=== PATIENT | female | born 1935 | race Caucasian/White ===

== ENCOUNTER 2017-02-22 22:26 | Emergency (ER) | payer MEDICARE, OTHER ==
[~2017-02-22] VITALS: Ht 160 cm; Wt 60.7 kg
[2017-02-22 22:27] VITALS: BP 131/76
== END 2017-02-23 00:08 | disposition home or self-care (01) ==
LOC: ED 02-23 00:02
DX: N30.01 Acute cystitis with hematuria (principal); I10 Essential (primary) hypertension
CPT/HCPCS: 81001; 87077; 87086; 87186; 99284

== ENCOUNTER → 2017-04-24 | Outpatient (CLI) | payer MEDICARE | END | disposition home or self-care (01) | LOC: CFH 07:23 | PROVIDERS: ATTEND Family Medicine | DX: G31.9 Degenerative disease of nervous system, unspecified (principal); R90.82 White matter disease, unspecified | CPT/HCPCS: 70551 ==

== ENCOUNTER 2017-05-19 08:33 | Emergency (ER) | payer MEDICARE ==
[~2017-05-19] VITALS: Ht 162.6 cm; Wt 60.7 kg
[2017-05-19 08:34] VITALS: BP 165/77
[2017-05-19 09:10] LABS: PATH.CAST-FLAG NOT PRESENT; SPERM-FLAG NOT PRESENT; SRC-FLAG NOT PRESENT; XTAL-FLAG NOT PRESENT; YLC-FLAG NOT PRESENT
[2017-05-19] MEDS ORDERED: CEFTRIAXONE 1,000 MG IM ONE (10:00)
[2017-05-19] MEDS ORDERED: LIDOCAINE 1%, 20ML ONE (10:01)
[2017-05-19] MEDS ORDERED: CEFTRIAXONE 1,000 MG ONE (10:01)
== END 2017-05-19 10:37 | disposition home or self-care (01) ==
LOC: ED 09:36
DX: R30.0 Dysuria (principal); R35.0 Frequency of micturition; R53.1 Weakness
CPT/HCPCS: 81001; 87086; 96372; 99284; J0696

== ENCOUNTER → 2017-05-19 | Outpatient (CLI) | payer MEDICARE | LOC: LAB 07:49 | PROVIDERS: ATTEND Family Medicine | DX: Z02.9 Encounter for administrative examinations, unspecified (principal) ==

== ENCOUNTER 2018-03-14 11:35 | Inpatient (IN) | payer MEDICARE ==
[~2018-03-14] VITALS: Ht 160 cm; Wt 61.0 kg
[2018-03-14] MEDS ORDERED: SODIUM CHLORIDE FLUSH 10ML SYR IVF ONE ×2 (12:30→13:30)
[2018-03-14] MEDS ORDERED: SODIUM CHLORIDE 0.9% 1,000ML IVBOLUS ONE (12:30)
[2018-03-14] MEDS ORDERED: ASPIRIN 81 MG TABLET CHEW PO ONE (12:30)
[2018-03-14 12:39] LABS: BASOPHILS # (AUTO) 0.08 x10^3/uL (0-0.1); BASOPHILS % (AUTO) 1 % (0-1); EOSINOPHILS # (AUTO) 0.12 x10^3/uL (0-0.4); EOSINOPHILS % (AUTO) 1 % (1-7); LYMPHOCYTES % (AUTO) 16 % (22-44); MD NO; MEAN CORPUSCULAR HEMOGLOBIN 29.1 pg (27.0-34.8); MEAN CORPUSCULAR HGB CONC 32.8 g/dL (32.4-35.8); MEAN PLATELET VOLUME 6.9 fL (7.4-10.4); MONOCYTES # (AUTO) 0.68 x10^3/uL (0.2-0.8); MONOCYTES % (AUTO) 6 % (2-9); NEUTROPHILS # (AUTO) 8.98 x10^3/uL (1.8-6.8); NEUTROPHILS % (AUTO) 76 % (42-75); PLATELET COUNT 464 x10^3/uL (130-400); RED BLOOD COUNT 4.27 x10^6/uL (3.82-5.3); RED CELL DISTRIBUTION WIDTH 14.5 % (9.6-15.2)
[2018-03-14 12:52] LABS: ALANINE AMINOTRANSFERASE 44 U/L (12-78); ALBUMIN 3.5 g/dL (3.4-5.0); ANION GAP 11 mmol/L (5-15); CALCIUM 9.5 mg/dL (8.5-10.1); CHLORIDE 91 mmol/L (98-107); CREATININE 0.72 mg/dL (0.55-1.02)
[2018-03-14 12:56] LABS: ALKALINE PHOSPHATASE 114 U/L (45-117); BILIRUBIN,TOTAL 0.4 mg/dL (0.2-1.0); TOTAL PROTEIN 7.8 g/dL (6.4-8.2); TROPONIN I < 0.015 ng/mL (0.000-0.045)
[2018-03-14] MEDS ORDERED: DIPHENHYDRAMINE 50 MG/ML, 1ML ONE (13:28)
[2018-03-14] MEDS ORDERED: ASPIRIN 81 MG TABLET CHEW ONE (13:28)
[2018-03-14] MEDS ORDERED: KETOROLAC 30 MG/1 ML ONE (13:28)
[2018-03-14] MEDS ORDERED: METOCLOPRAMIDE 5 MG/ML, 2ML ONE (13:28)
[2018-03-14] MEDS ORDERED: KETOROLAC 30 MG/1 ML IVPush ONE (13:30)
[2018-03-14] MEDS ORDERED: DIPHENHYDRAMINE 50 MG/ML, 1ML IVPush ONE (13:30)
[2018-03-14] MEDS ORDERED: METOCLOPRAMIDE 5 MG/ML, 2ML IVPush ONE (13:30)
[2018-03-14] MEDS ORDERED: ENALAPRILAT 1.25 MG/ML, 2ML IV ONE (14:30)
[2018-03-14] MEDS ORDERED: ENALAPRILAT 1.25 MG/ML, 2ML ONE (14:44)
[2018-03-14 14:45] LABS: MICROSCOPIC AUTO
[2018-03-14 14:46] LABS: CULTURE INDICATED? YES
[2018-03-14] MEDS ORDERED: CEFTRIAXONE PMX 1GM/50ML 50 ML ONE (14:54)
[2018-03-14] MEDS ORDERED: CEFTRIAXONE PMX 1GM/50ML 50 ML IV ONE (15:00)
[2018-03-14] MEDS ORDERED: LOSA100T6 PO (15:53)
[2018-03-14] MEDS ORDERED: POTA10TA6 PO (15:53)
[2018-03-14] MEDS ORDERED: ATOR20TA PO (15:53)
[2018-03-14] MEDS ORDERED: FURO-93 PO (15:53)
[2018-03-14 16:01] VITALS: BP 177/90
[2018-03-14] MEDS ORDERED: POLYETHYLENE GLYCOL 17 GM PACKET PO PRN (16:30)
[2018-03-14] MEDS ORDERED: morphine SULFATE 10 MG/ML, 1ML IVPush PRN (16:30)
[2018-03-14] MEDS ORDERED: ACETAMINOPHEN 325 MG TABLET PO PRN (16:30)
[2018-03-14] MEDS ORDERED: ONDANSETRON 2MG/ML, 2ML IVPush PRN (16:30)
[2018-03-14] MEDS ORDERED: ENALAPRILAT 1.25 MG/ML, 2ML IV PRN (16:30)
[2018-03-14] MEDS ORDERED: DOCUSATE 100 MG CAPSULE PO PRN (16:30)
[2018-03-14] MEDS ORDERED: LABETALOL 5MG/ML, 20ML IVPush PRN (16:30)
[2018-03-14] MEDS: hydrALAzine 20 MG/ML, 1ML IV PRN (16:55)
[2018-03-14] MEDS: KETOROLAC 30 MG/1 ML IVPush PRN (16:55)
[2018-03-14] MEDS: ENOXAPARIN 40 MG/0.4 ML SQ SCH (16:56)
[2018-03-14] MEDS ORDERED: FUROSEMIDE 20 MG TABLET PO SCH (17:00)
[2018-03-14] MEDS: CEFTRIAXONE PMX 1GM/50ML 50 ML IV SCH (17:54)
[2018-03-14] MEDS: NS + 20MEQ KCL 1,000 ML IV SCH (17:55)
[2018-03-14] MEDS: HYDROcodone/APAP 5/325 TABLET PO PRN (17:58)
[2018-03-14 18:22] VITALS: BP 145/95
[2018-03-14 19:13] VITALS: BP 145/72
[2018-03-14] MEDS: ATORVASTATIN 20 MG TABLET PO SCH (20:54)
[2018-03-15] MEDS: HYDROcodone/APAP 5/325 TABLET PO PRN ×2 (02:44→19:25)
[2018-03-15 02:46] VITALS: BP 161/76
[2018-03-15] MEDS: NS + 20MEQ KCL 1,000 ML IV SCH (03:11)
[2018-03-15 05:29] LABS: ANION GAP 8 mmol/L (5-15); CALCIUM 7.8 mg/dL (8.5-10.1); CHLORIDE 102 mmol/L (98-107); CREATININE 0.62 mg/dL (0.55-1.02)
[2018-03-15 06:33] VITALS: BP 181/84
[2018-03-15] MEDS: KETOROLAC 30 MG/1 ML IVPush PRN ×2 (06:40→20:59)
[2018-03-15] MEDS: hydrALAzine 20 MG/ML, 1ML IV PRN (06:40)
[2018-03-15] MEDS ORDERED: DIPHENHYDRAMINE 50 MG/ML, 1ML IVPush ONE (08:00)
[2018-03-15] MEDS ORDERED: METOCLOPRAMIDE 5 MG/ML, 2ML IVPush ONE (08:00)
[2018-03-15] MEDS ORDERED: KETOROLAC 30 MG/1 ML IVPush SCH (08:00)
[2018-03-15] MEDS ORDERED: METOCLOPRAMIDE 5 MG/ML, 2ML ONE (08:04)
[2018-03-15] MEDS ORDERED: DIPHENHYDRAMINE 50 MG/ML, 1ML ONE (08:04)
[2018-03-15] MEDS ORDERED: FUROSEMIDE 40 MG TABLET ONE (08:05)
[2018-03-15] MEDS: LOSARTAN 50MG TABLET PO SCH (08:08)
[2018-03-15] MEDS: POTASSIUM CHLORIDE 10 MEQ TABLET.ER PO SCH (08:08)
[2018-03-15] MEDS: SENNA/DOCUSATE TABLET PO SCH (08:15)
[2018-03-15] MEDS ORDERED: FUROSEMIDE 20 MG TABLET PO SCH (09:00)
[2018-03-15 09:30] VITALS: BP 133/67
[2018-03-15] MEDS: SODIUM CHLORIDE 0.45% 1,000 ML IV SCH ×2 (09:30→19:26)
[2018-03-15] MEDS ORDERED: ENALAPRILAT 1.25 MG/ML, 2ML IV PRN (10:30)
[2018-03-15] MEDS: FLUTICASONE NASAL SPRAY 16GM NAS SCH ×2 (11:54→19:25)
[2018-03-15 14:00] VITALS: BP 155/77
[2018-03-15] MEDS: CETIRIZINE 10 MG TABLET PO PRN (15:44)
[2018-03-15] MEDS: CEFTRIAXONE PMX 1GM/50ML 50 ML IV SCH (17:04)
[2018-03-15] MEDS: ENOXAPARIN 40 MG/0.4 ML SQ SCH (17:04)
[2018-03-15] MEDS: ATORVASTATIN 20 MG TABLET PO SCH (19:25)
[2018-03-15 20:00] VITALS: BP 162/71
[2018-03-16] VITALS (8 sets, daily range): BP systolic 144–186; BP diastolic 72–85
[2018-03-16 05:29] LABS: ALBUMIN 2.5 g/dL (3.4-5.0); ANION GAP 8 mmol/L (5-15); CALCIUM 7.8 mg/dL (8.5-10.1); CHLORIDE 105 mmol/L (98-107)
[2018-03-16 05:34] LABS: ALANINE AMINOTRANSFERASE 33 U/L (12-78); ALKALINE PHOSPHATASE 74 U/L (45-117); BILIRUBIN,TOTAL 0.5 mg/dL (0.2-1.0); CREATININE 0.69 mg/dL (0.55-1.02); TOTAL PROTEIN 5.5 g/dL (6.4-8.2)
[2018-03-16] MEDS: SODIUM CHLORIDE 0.45% 1,000 ML IV SCH (05:35)
[2018-03-16] MEDS: KETOROLAC 30 MG/1 ML IVPush PRN ×2 (05:35→21:23)
[2018-03-16 05:36] LABS: BASOPHILS # (AUTO) 0.06 x10^3/uL (0-0.1); BASOPHILS % (AUTO) 1 % (0-1); EOSINOPHILS # (AUTO) 0.41 x10^3/uL (0-0.4); EOSINOPHILS % (AUTO) 5 % (1-7); LYMPHOCYTES # (AUTO) 2.23 x10^3/uL (1-3.4); LYMPHOCYTES % (AUTO) 29 % (22-44); MD NO; MEAN CORPUSCULAR HEMOGLOBIN 29.5 pg (27.0-34.8); MEAN CORPUSCULAR HGB CONC 33.2 g/dL (32.4-35.8); MEAN CORPUSCULAR VOLUME 88.8 fL (80-100); MEAN PLATELET VOLUME 6.7 fL (7.4-10.4); MONOCYTES # (AUTO) 0.72 x10^3/uL (0.2-0.8); MONOCYTES % (AUTO) 9 % (2-9); NEUTROPHILS # (AUTO) 4.23 x10^3/uL (1.8-6.8); NEUTROPHILS % (AUTO) 55 % (42-75); PLATELET COUNT 440 x10^3/uL (130-400); RED BLOOD COUNT 3.41 x10^6/uL (3.82-5.3); RED CELL DISTRIBUTION WIDTH 14.3 % (9.6-15.2)
[2018-03-16] MEDS: SENNA/DOCUSATE TABLET PO SCH (07:22)
[2018-03-16] MEDS: LOSARTAN 50MG TABLET PO SCH (07:22)
[2018-03-16] MEDS: FLUTICASONE NASAL SPRAY 16GM NAS SCH ×2 (07:22→21:23)
[2018-03-16] MEDS: POTASSIUM CHLORIDE 10 MEQ TABLET.ER PO SCH (07:22)
[2018-03-16] MEDS: CEFTRIAXONE PMX 1GM/50ML 50 ML IV SCH (09:14)
[2018-03-16] MEDS: AMLODIPINE 5 MG TABLET PO SCH (09:22)
[2018-03-16] MEDS: FUROSEMIDE 40 MG TABLET PO SCH (09:22)
[2018-03-16] MEDS: hydrALAzine 20 MG/ML, 1ML IV PRN (10:28)
[2018-03-16] MEDS: HYDROcodone/APAP 5/325 TABLET PO PRN ×2 (14:13→19:36)
[2018-03-16] MEDS: ENOXAPARIN 40 MG/0.4 ML SQ SCH (16:56)
[2018-03-16] MEDS: CETIRIZINE 10 MG TABLET PO PRN (19:36)
[2018-03-16] MEDS: ATORVASTATIN 20 MG TABLET PO SCH (21:23)
[2018-03-17 02:59] VITALS: BP 120/60
[2018-03-17] MEDS: KETOROLAC 30 MG/1 ML IVPush PRN (04:30)
[2018-03-17 05:01] LABS: ALBUMIN 2.9 g/dL (3.4-5.0); ANION GAP 9 mmol/L (5-15); CALCIUM 8.3 mg/dL (8.5-10.1); CHLORIDE 100 mmol/L (98-107)
[2018-03-17 05:02] LABS: CREATININE 0.71 mg/dL (0.55-1.02)
[2018-03-17 05:18] LABS: BASOPHILS # (AUTO) 0.09 x10^3/uL (0-0.1); BASOPHILS % (AUTO) 1 % (0-1); EOSINOPHILS # (AUTO) 0.59 x10^3/uL (0-0.4); EOSINOPHILS % (AUTO) 8 % (1-7); LYMPHOCYTES # (AUTO) 2.29 x10^3/uL (1-3.4); LYMPHOCYTES % (AUTO) 31 % (22-44); MD NO; MEAN CORPUSCULAR HEMOGLOBIN 29.4 pg (27.0-34.8); MEAN CORPUSCULAR HGB CONC 33.4 g/dL (32.4-35.8); MEAN CORPUSCULAR VOLUME 88.2 fL (80-100); MEAN PLATELET VOLUME 6.5 fL (7.4-10.4); MONOCYTES # (AUTO) 0.63 x10^3/uL (0.2-0.8); MONOCYTES % (AUTO) 8 % (2-9); NEUTROPHILS % (AUTO) 52 % (42-75); PLATELET COUNT 528 x10^3/uL (130-400); RED BLOOD COUNT 3.86 x10^6/uL (3.82-5.3); RED CELL DISTRIBUTION WIDTH 14.3 % (9.6-15.2)
[2018-03-17 07:24] VITALS: BP 143/73
[2018-03-17] MEDS: FLUTICASONE NASAL SPRAY 16GM NAS SCH (08:27)
[2018-03-17] MEDS: POTASSIUM CHLORIDE 10 MEQ TABLET.ER PO SCH (08:29)
[2018-03-17] MEDS: SENNA/DOCUSATE TABLET PO SCH (08:29)
[2018-03-17] MEDS: LOSARTAN 50MG TABLET PO SCH (08:30)
[2018-03-17] MEDS: FUROSEMIDE 40 MG TABLET PO SCH (08:31)
[2018-03-17] MEDS: AMLODIPINE 5 MG TABLET PO SCH (08:31)
[2018-03-17] MEDS: CEFTRIAXONE PMX 1GM/50ML 50 ML IV SCH (08:32)
[2018-03-17 09:55] VITALS: BP 173/76
[2018-03-17] MEDS ORDERED: AMLO5TAB2 PO (10:24)
[2018-03-17] MEDS ORDERED: CEFD300C37 PO (10:25)
[2018-03-17 10:42] LABS: MICROSCOPIC NOT IND
[2018-03-17 11:42] VITALS: BP 151/78
[2018-03-17 12:25] VITALS: BP 132/79
[2018-03-17 13:04] VITALS: BP 118/67
== END 2018-03-17 16:00 | disposition home or self-care (01) | DRG 640 ==
LOC: ED 14:14 → EDIP 14:27 → 4WST 15:32 → DCLOUNGE 03-17 15:39
PROVIDERS: ADMIT Internal Medicine Pulmonary Disease; ATTEND Family Medicine
DX: E87.1 Hypo-osmolality and hyponatremia (principal); E43 Unspecified severe protein-calorie malnutrition; N39.0 Urinary tract infection, site not specified; D64.9 Anemia, unspecified; B96.20 Unspecified Escherichia coli [E. coli] as the cause of diseases classified elsewhere; E78.00 Pure hypercholesterolemia, unspecified; E78.5 Hyperlipidemia, unspecified; F41.9 Anxiety disorder, unspecified; R51 Headache; R79.89 Other specified abnormal findings of blood chemistry; I10 Essential (primary) hypertension; Z79.899 Other long term (current) drug therapy; Z80.3 Family history of malignant neoplasm of breast; Z88.8 Allergy status to other drugs, medicaments and biological substances; Z68.23 Body mass index [BMI] 23.0-23.9, adult
CPT/HCPCS: 36415; 70450; 71046; 80048; 80053; 81001; 81003; 82040; 83735; 84100; 84484; 85025; 87040; 87077; 87086; 87186; 93005; 96361; 96374; 96375; J0696; J1650; J1885; J3480; J0360; J1200; J2765; J7030

== ENCOUNTER 2018-05-21 00:19 | Emergency (ER) | payer MEDICARE ==
[~2018-05-21] VITALS: Ht 160 cm; Wt 61.5 kg
[~2018-05-21 00:19] MED LIST: AMLO5TAB2 PO; ATOR20TA PO; CEFD300C37 PO; FURO-93 PO; LOSA100T6 PO; POTA10TA6 PO
[2018-05-21 01:37] LABS: MICROSCOPIC AUTO
[2018-05-21 01:38] LABS: CULTURE INDICATED? YES
[2018-05-21 01:47] VITALS: BP 152/73
[2018-05-21] MEDS ORDERED: CEFDINIR 300 MG CAPSULE ONE (01:59)
[2018-05-21] MEDS ORDERED: CEFDINIR 300 MG CAPSULE PO ONE (02:00)
[2018-05-21] MEDS ORDERED: DIPHENHYDRAMINE 50 MG CAPSULE PO PRN (02:00)
[2018-05-21] MEDS ORDERED: DIPHENHYDRAMINE 50 MG CAPSULE ONE (02:04)
== END 2018-05-21 02:14 | disposition home or self-care (01) ==
LOC: ED 02:01
DX: N30.00 Acute cystitis without hematuria (principal); E78.00 Pure hypercholesterolemia, unspecified; I10 Essential (primary) hypertension
CPT/HCPCS: 81001; 87077; 87086; 87186; 99284

== ENCOUNTER 2018-12-29 10:51 | Inpatient (IN) | payer MEDICARE ==
[~2018-12-29] VITALS: Ht 160 cm; Wt 60.0 kg
[~2018-12-29 10:51] MED LIST changes: +AMLO-150 PO; -AMLO5TAB2 PO; +LOSA100T14 PO; -LOSA100T6 PO
--- NOTE | 2018-12-29 11:15 | NUR ---
PT BIB [facility] AFTER [facility] SLIPPING ON ICE AND INJURING LEFT HIP. NOTED LEG IS VERY PAINFUL AND EXTERNALLY ROTATED. IV IN PLACE ON ARRIVAL, 75 FENT AND 1 VERSED GIVEN IN ROUTE. AT BEDSIDE. MD TO BEDSIDE FOR ASSESSMENT. CONNECTED TO MONITORING, VSS. CALL LIGHT WITHIN REACH. AWAITING TESTING AND RESULTS AT [facility] TIME
[2018-12-29] MEDS ORDERED: ONDANSETRON 2MG/ML, 2ML ONE ×2 (11:19→18:34)
[2018-12-29] MEDS ORDERED: HYDROmorphone 1 MG/ML, 1ML ONE (11:19)
[2018-12-29] MEDS ORDERED: ONDANSETRON 2MG/ML, 2ML IVPush ONE (11:30)
[2018-12-29] MEDS ORDERED: HYDROmorphone 1 MG/ML, 1ML IVPush PRN (11:30)
--- NOTE | 2018-12-29 11:43 | NUR ---
PT ATTMEPTED TO USE BEDPAN BUT WAS UNABLE. PT STRAIGHTCATHED WITH MD PERMISSION TO EMPTY BLADDER.
[2018-12-29 11:45] LABS: BASOPHILS # (AUTO) 0.03 x10^3/uL (0-0.1); BASOPHILS % (AUTO) 0 % (0-1); EOSINOPHILS # (AUTO) 0.34 x10^3/uL (0-0.4); EOSINOPHILS % (AUTO) 5 % (1-7); LYMPHOCYTES # (AUTO) 1.99 x10^3/uL (1-3.4); LYMPHOCYTES % (AUTO) 29 % (22-44); MD NO; MEAN CORPUSCULAR HEMOGLOBIN 29.5 pg (27.0-34.8); MEAN CORPUSCULAR HGB CONC 33.5 g/dL (32.4-35.8); MEAN PLATELET VOLUME 7.8 fL (7.4-10.4); MONOCYTES % (AUTO) 7 % (2-9); NEUTROPHILS # (AUTO) 3.98 x10^3/uL (1.8-6.8); NEUTROPHILS % (AUTO) 58 % (42-75); PLATELET COUNT 331 x10^3/uL (130-400); RED BLOOD COUNT 4.48 x10^6/uL (3.82-5.3); RED CELL DISTRIBUTION WIDTH 14.9 % (9.6-15.2)
[2018-12-29 11:51] LABS: INTERNATIONAL NORMALIZED RATIO 0.98 (0.93-1.1); PROTHROMBIN TIME 10.4 Seconds (9.6-11.5)
[2018-12-29 11:52] LABS: ALBUMIN 3.7 g/dL (3.4-5.0); ANION GAP 8 mmol/L (5-15); CALCIUM 9.1 mg/dL (8.5-10.1); CHLORIDE 103 mmol/L (98-107); CREATININE 0.85 mg/dL (0.55-1.02)
--- NOTE | 2018-12-29 11:58 | NUR ---
[facility] CONTACTED TO F/U ON IMAGING
--- NOTE | 2018-12-29 12:06 | NUR ---
PT TAKEN FOR IMAGING
--- NOTE | 2018-12-29 12:20 | NUR ---
PT BACK FROM IMAGING
--- NOTE | 2018-12-29 12:33 | NUR ---
ALL RESULTS BACK AT THIS TIME
--- NOTE | 2018-12-29 12:53 | NUR ---
MD TO BEDSIDE FOR ADMIT
--- NOTE | 2018-12-29 13:10 | NUR ---
REPORT GIVEN TO YSABEL RN, PT READY FOR TRANSPORT
[2018-12-29] MEDS: SODIUM CHLORIDE 0.9% 1,000 ML IV SCH (13:48)
[2018-12-29] MEDS ORDERED: ENALAPRILAT 1.25 MG/ML, 2ML IVPush PRN (14:00)
[2018-12-29] MEDS ORDERED: DOCUSATE 100 MG CAPSULE PO PRN (14:00)
[2018-12-29] MEDS ORDERED: POLYETHYLENE GLYCOL 17 GM PACKET PO PRN (14:00)
[2018-12-29] MEDS ORDERED: hydrALAzine 20 MG/ML, 1ML IVPush PRN (14:00)
[2018-12-29] MEDS ORDERED: BISACODYL 10 MG SUPP PR PRN (14:00)
[2018-12-29] MEDS ORDERED: POTASSIUM CHLORIDE 40 MEQ in SODIUM CHLORIDE 0.9% 500 ML IV ONE (14:00)
[2018-12-29] MEDS ORDERED: BACLOFEN 10 MG TABLET PO PRN (14:00)
[2018-12-29] MEDS ORDERED: OXYcodone IR 5MG TABLET PO PRN ×2 (14:00→22:00)
[2018-12-29 14:59] VITALS: BP 119/73
[2018-12-29] MEDS: morphine SULFATE 10 MG/ML, 1ML IVPush PRN ×2 (16:52→17:08)
[2018-12-29] MEDS ORDERED: FENTANYL PF 100 MCG/2ML ONE ×2 (17:45→19:36)
[2018-12-29] MEDS ORDERED: MIDAZOLAM 1 MG/ML, 2ML ONE (17:46)
[2018-12-29] MEDS ORDERED: DEXAMETHASONE 4 MG/ML, 1ML ONE (18:34)
[2018-12-29] MEDS ORDERED: CEFAZOLIN 1,000 MG ONE (18:34)
[2018-12-29] MEDS ORDERED: SUCCINYLCHOLINE 20 MG/ML, 10ML ONE (18:34)
[2018-12-29] MEDS ORDERED: PHENYLEPHRINE 10 MG/ML ONE (18:34)
[2018-12-29] MEDS ORDERED: PROPOFOL 10 MG/ML, 20ML ONE (18:34)
[2018-12-29] MEDS ORDERED: OXYcodone 5 MG/5 ML ORAL.SOL UDC PO PRN (19:30)
[2018-12-29] MEDS ORDERED: MIDAZOLAM 1 MG/ML, 2ML IV PRN (19:30)
[2018-12-29] MEDS ORDERED: hydrALAzine 20 MG/ML, 1ML IV PRN (19:30)
[2018-12-29] MEDS ORDERED: ALBUTEROL/IPRATROPIUM 2.5MG/0.5MG, 3 ML NPPB PRN (19:30)
[2018-12-29] MEDS ORDERED: PROMETHAZINE 25 MG/ML, 1ML IV PRN (19:30)
[2018-12-29] MEDS ORDERED: ACETAMINOPHEN 325 MG TABLET PO PRN (19:30)
[2018-12-29] MEDS ORDERED: KETOROLAC 30 MG/1 ML IV PRN (19:30)
[2018-12-29] MEDS ORDERED: ONDANSETRON 2MG/ML, 2ML IV PRN (19:30)
[2018-12-29] MEDS ORDERED: OXYcodone 5 MG/5 ML ORAL.SOL UDC ONE (19:36)
[2018-12-29] MEDS ORDERED: ACETAMINOPHEN 650 MG/20.3 ML UDC ONE (19:36)
[2018-12-29] MEDS: FENTANYL PF 100 MCG/2ML IV PRN ×2 (19:38→20:02)
[2018-12-29] MEDS ORDERED: HYDROmorphone 2 MG/ML, 1ML ONE (20:16)
[2018-12-29] MEDS: HYDROmorphone 2 MG/ML, 1ML IVPush PRN ×2 (20:19→20:32)
[2018-12-29 21:02] VITALS: BP 113/56
[2018-12-29] MEDS ORDERED: MORPHINE SULFATE 4 MG/ML, 1ML IVPush PRN (22:00)
[2018-12-29] MEDS: ATORVASTATIN 20 MG TABLET PO SCH (22:20)
[2018-12-29] MEDS: KETOROLAC 30 MG/1 ML IVPush SCH (22:20)
[2018-12-30 00:07] VITALS: BP 96/48
[2018-12-30] MEDS: CEFAZOLIN PMX 1GM/50ML 50 ML IV SCH ×3 (02:24→18:35)
[2018-12-30 04:00] VITALS: BP 97/54
[2018-12-30] MEDS: ENOXAPARIN 40 MG/0.4 ML SQ SCH (05:10)
[2018-12-30] MEDS: KETOROLAC 30 MG/1 ML IVPush SCH ×2 (05:10→14:14)
[2018-12-30 05:34] LABS: BASOPHILS # (AUTO) 0.03 x10^3/uL (0-0.1); BASOPHILS % (AUTO) 0 % (0-1); EOSINOPHILS % (AUTO) 0 % (1-7); LYMPHOCYTES # (AUTO) 0.53 x10^3/uL (1-3.4); LYMPHOCYTES % (AUTO) 5 % (22-44); MD NO; MEAN CORPUSCULAR HEMOGLOBIN 29.8 pg (27.0-34.8); MEAN CORPUSCULAR HGB CONC 33.7 g/dL (32.4-35.8); MEAN CORPUSCULAR VOLUME 88.6 fL (80-100); MONOCYTES % (AUTO) 4 % (2-9); NEUTROPHILS % (AUTO) 91 % (42-75); PLATELET COUNT 283 x10^3/uL (130-400); RED CELL DISTRIBUTION WIDTH 14.5 % (9.6-15.2)
[2018-12-30 05:41] LABS: ANION GAP 9 mmol/L (5-15); CALCIUM 8.5 mg/dL (8.5-10.1); CHLORIDE 106 mmol/L (98-107); CHOLESTEROL, TOTAL 155 mg/dL (140-239); CREATININE 0.97 mg/dL (0.55-1.02); TRIGLYCERIDES 42 mg/dL (50-200); VLDL CHOLESTEROL 8 mg/dL (0-25)
[2018-12-30 05:43] LABS: CHOL/HDL RATIO 1.7; HDL CHOL % 59 % (28-40); HDL CHOLESTEROL (DIRECT) 91 mg/dL (40-60); LDL CHOLESTEROL,CALCULATED 56 mg/dL (54-169); LDL/HDL RATIO 0.6 (0.5-3.0)
[2018-12-30 07:42] VITALS: BP 100/63
[2018-12-30] MEDS: AMLODIPINE 5 MG TABLET PO SCH (08:04)
[2018-12-30] MEDS: ACETAMINOPHEN 325 MG TABLET PO PRN (08:04)
[2018-12-30] MEDS ORDERED: AMLODIPINE 5 MG TABLET PO SCH (09:00)
[2018-12-30 14:19] VITALS: BP 101/55
[2018-12-30] MEDS: SODIUM CHLORIDE 0.9% 1,000 ML IV SCH (20:00)
[2018-12-30 20:26] VITALS: BP 105/58
[2018-12-30] MEDS: ATORVASTATIN 20 MG TABLET PO SCH (21:17)
[2018-12-30] MEDS: GABAPENTIN 300 MG CAPSULE PO PRN (21:17)
[2018-12-31 02:00] VITALS: BP 119/69
[2018-12-31 02:30] VITALS: BP 116/73
[2018-12-31 05:23] LABS: BASOPHILS # (AUTO) 0.02 x10^3/uL (0-0.1); BASOPHILS % (AUTO) 0 % (0-1); EOSINOPHILS # (AUTO) 0.04 x10^3/uL (0-0.4); EOSINOPHILS % (AUTO) 1 % (1-7); LYMPHOCYTES # (AUTO) 1.71 x10^3/uL (1-3.4); LYMPHOCYTES % (AUTO) 18 % (22-44); MD NO; MEAN CORPUSCULAR HEMOGLOBIN 29.7 pg (27.0-34.8); MEAN CORPUSCULAR HGB CONC 34.1 g/dL (32.4-35.8); MEAN CORPUSCULAR VOLUME 87.1 fL (80-100); MEAN PLATELET VOLUME 7.5 fL (7.4-10.4); MONOCYTES # (AUTO) 0.77 x10^3/uL (0.2-0.8); MONOCYTES % (AUTO) 8 % (2-9); NEUTROPHILS # (AUTO) 7.02 x10^3/uL (1.8-6.8); NEUTROPHILS % (AUTO) 74 % (42-75); PLATELET COUNT 219 x10^3/uL (130-400); RED BLOOD COUNT 3.05 x10^6/uL (3.82-5.3); RED CELL DISTRIBUTION WIDTH 14.7 % (9.6-15.2)
[2018-12-31] MEDS: ENOXAPARIN 40 MG/0.4 ML SQ SCH (06:07)
[2018-12-31 07:29] VITALS: BP 112/65
[2018-12-31] MEDS: AMLODIPINE 5 MG TABLET PO SCH (08:43)
[2018-12-31] MEDS: ACETAMINOPHEN 325 MG TABLET PO PRN (08:44)
[2018-12-31] MEDS: GABAPENTIN 300 MG CAPSULE PO PRN (08:44)
[2018-12-31] MEDS ORDERED: ASPI-515 PO (12:49)
[2018-12-31] MEDS ORDERED: DOCU-131 PO (12:50)
[2018-12-31] MEDS ORDERED: TRAM50TA2 PO (12:51)
[2018-12-31] MEDS ORDERED: HYDR-3240 PO (12:53)
[2018-12-31 12:55] VITALS: BP 110/68
[2018-12-31] MEDS ORDERED: GABA300C10 PO (14:27)
== END 2018-12-31 14:45 | disposition home or self-care (01) | DRG 481 ==
LOC: ED 11:32 → EDIP 12:41 → 4NOR 13:28 → DCLOUNGE 12-31 14:24
PROVIDERS: ADMIT Hospitalist; ATTEND Hospitalist
PROC: 3E0T3BZ Introduction of Anesthetic Agent into Peripheral Nerves and Plexi, Percutaneous Approach (ICD-10-PCS; 2018-12-29)
PROC: 0QS736Z Reposition Left Upper Femur with Intramedullary Internal Fixation Device, Percutaneous Approach (ICD-10-PCS; principal; 2018-12-29 16:00)
DX: S72.142A Displaced intertrochanteric fracture of left femur, initial encounter for closed fracture (principal); E87.1 Hypo-osmolality and hyponatremia; I10 Essential (primary) hypertension; E78.5 Hyperlipidemia, unspecified; W00.0XXA Fall on same level due to ice and snow, initial encounter; D72.829 Elevated white blood cell count, unspecified; F41.9 Anxiety disorder, unspecified; E78.00 Pure hypercholesterolemia, unspecified; E87.6 Hypokalemia; Y93.01 Activity, walking, marching and hiking; Y92.89 Other specified places as the place of occurrence of the external cause; Y99.8 Other external cause status; Z80.0 Family history of malignant neoplasm of digestive organs; Z80.3 Family history of malignant neoplasm of breast; Z85.3 Personal history of malignant neoplasm of breast; Z90.11 Acquired absence of right breast and nipple; Z87.440 Personal history of urinary (tract) infections; Z90.49 Acquired absence of other specified parts of digestive tract; Z90.89 Acquired absence of other organs; Z87.891 Personal history of nicotine dependence; Z88.6 Allergy status to analgesic agent
CPT/HCPCS: 36415; 71045; 76000; 80048; 80061; 82040; 84443; 85025; 85610; 93005; 96374; 96375; 99285; C1713; G0378; J0690; J1100; J1170; J1650; J1885; J2250; J2405; J2704; J3010; J3480; J0330; J2270; J2370; J7030; J7040

== ENCOUNTER 2019-11-29 07:55 | Emergency (ER) | payer MEDICARE ==
[~2019-11-29] VITALS: Ht 160 cm; Wt 62.1 kg
[~2019-11-29 07:55] MED LIST changes: +ASPI-515 PO; +DOCU-131 PO; +GABA300C10 PO; +HYDR-3240 PO; +TRAM50TA2 PO
[2019-11-29 07:56] VITALS: BP 164/70
[2019-11-29 08:44] LABS: BASOPHILS # (AUTO) 0.03 x10^3/uL (0-0.1); BASOPHILS % (AUTO) 0 % (0-1); EOSINOPHILS # (AUTO) 0.51 x10^3/uL (0-0.4); EOSINOPHILS % (AUTO) 6 % (1-7); LYMPHOCYTES # (AUTO) 2.33 x10^3/uL (1-3.4); LYMPHOCYTES % (AUTO) 26 % (22-44); MD NO; MEAN CORPUSCULAR HEMOGLOBIN 29.2 pg (27.0-34.8); MEAN CORPUSCULAR HGB CONC 32.7 g/dL (32.4-35.8); MEAN CORPUSCULAR VOLUME 89.4 fL (80-100); MEAN PLATELET VOLUME 7.1 fL (7.4-10.4); MONOCYTES # (AUTO) 0.62 x10^3/uL (0.2-0.8); MONOCYTES % (AUTO) 7 % (2-9); NEUTROPHILS # (AUTO) 5.61 x10^3/uL (1.8-6.8); NEUTROPHILS % (AUTO) 62 % (42-75); PLATELET COUNT 357 x10^3/uL (130-400); RED BLOOD COUNT 4.81 x10^6/uL (3.82-5.3)
[2019-11-29 08:46] LABS: MICROSCOPIC AUTO
[2019-11-29 08:54] LABS: ALANINE AMINOTRANSFERASE 32 U/L (12-78); ALBUMIN 3.8 g/dL (3.4-5.0); ANION GAP 7 mmol/L (5-15); CALCIUM 9.2 mg/dL (8.5-10.1); CHLORIDE 99 mmol/L (98-107); CREATININE 0.85 mg/dL (0.55-1.02)
[2019-11-29 08:55] LABS: CULTURE INDICATED? YES
[2019-11-29 08:56] LABS: ALKALINE PHOSPHATASE 134 U/L (45-117); BILIRUBIN,TOTAL 0.5 mg/dL (0.2-1.0); TOTAL PROTEIN 7.6 g/dL (6.4-8.2)
--- NOTE | 2019-11-29 10:08 | NUR ---
CERTIFIED DRUG COUNSELOR: Patient/Caregiver given discharge instructions and they have confirmed that they understand the instructions. Patient ambulatory with steady gait.
== END 2019-11-29 10:09 | disposition home or self-care (01) ==
LOC: ED 08:43
DX: S39.012A Strain of muscle, fascia and tendon of lower back, initial encounter (principal); I10 Essential (primary) hypertension; X58.XXXA Exposure to other specified factors, initial encounter; Y93.89 Activity, other specified; Y92.89 Other specified places as the place of occurrence of the external cause; Y99.8 Other external cause status
CPT/HCPCS: 36415; 80053; 81001; 85025; 87077; 87086; 87186; 99283